=== PATIENT | male | born 1945 | race Caucasian/White ===

== ENCOUNTER → 2016-09-14 | Outpatient (CLI) | payer OTHER ==
[~2016-09-14] MED LIST: ASPIRIN325 M1 PO; B COMPLEX1 TAB PO; GLUCOTROL PO; LISINOPRIL-HCTZ1 T20 PO; LORTAB 5/500 TA1 TA1 PO; METFORMIN PO; PLAVIX PO; PRAVASTATIN SOD40 MG PO; SKELAXIN PO; VITAMIN D5000 UNIT PO
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
== END | disposition home or self-care (01) ==
LOC: SMRI 11:22
DX: R63.4 Abnormal weight loss (principal); R06.02 Shortness of breath; R19.4 Change in bowel habit; M47.816 Spondylosis without myelopathy or radiculopathy, lumbar region
CPT/HCPCS: 72148